=== PATIENT | male | born 1965 | race Caucasian/White ===

== ENCOUNTER 2023-10-30 12:23 | Day surgery (SDC) | payer MEDICAID, OTHER ==
[~2023-10-30] VITALS: Ht 177.8 cm; Wt 86.0 kg
[~2023-10-30 12:23] MED LIST: BALANCED SALT IRRIG SOLN 15ML ONE
[2023-10-30 12:33] VITALS: BP 116/86; TEMP 97.8; O2SAT 100
[2023-10-30 12:34] VITALS: PULSE 77; RESP 18
[2023-10-30 13:23] LABS: BASOPHILS % 1.1 % (0.0-2.0); EOSINOPHILS % 2.3 % (0.0-5.0); HEMATOCRIT. 49.4 % (42.0-52.0); HEMOGLOBIN. 16.2 g/dL (14.0-18.0); LYMPHOCYTES % 21.1 % (20.0-50.0); MEAN CORPUSCULAR HEMOGLOBIN 30.4 pg (28.0-32.0); MEAN CORPUSCULAR HGB CONC 32.8 g/dL (31.0-37.0); MEAN CORPUSCULAR VOLUME 92.5 fL (80.0-94.0); MEAN PLATELET VOLUME 8.4 fl (7.4-10.4); MONOCYTES % 6.6 % (2.0-8.0); NEUTROPHILS % 68.9 % (40.0-76.0); PLATELET 247 x1000/uL (130-400); RED BLOOD CELL COUNT 5.34 mill/uL (4.7-6.1); RED CELL DISTRIBUTION WIDTH 13.6 % (11.6-14.6); WHITE BLOOD COUNT 7.7 x1000/uL (4.5-11.0)
[2023-10-30 13:30] LABS: CHLORIDE 111 mEq/L (98-107); POTASSIUM 4.3 mEq/L (3.5-5.1); SODIUM 141 mEq/L (136-145)
[2023-10-30 13:31] LABS: CALCIUM 9.4 mg/dL (8.7-10.4); CARBON DIOXIDE 29 mEq/L (21-32)
[2023-10-30 13:36] LABS: GLUCOSE 130 mg/dL (70-105)
[2023-10-30 13:37] LABS: UREA NITROGEN BLOOD 15 mg/dL (9-23)
[2023-10-30 13:38] LABS: ALANINE AMINOTRANSFERASE 9 IU/L (10-49); ALBUMIN 4.6 g/dL (3.2-4.8); ASPARTATE AMINOTRANSFERASE 12 IU/L (<34); BILIRUBIN DIRECT 0.2 mg/dL (<=3.0)
[2023-10-30 13:39] LABS: BILIRUBIN TOTAL 0.7 mg/dL (0.1-1.0); PROTEIN TOTAL 6.9 g/dL (6.0-8.3)
[2023-10-30] MEDS ORDERED: MIDAZOLAM HCL 2 MG/2 ML VIAL ONE ×2 (13:48→14:46)
[2023-10-30] MEDS ORDERED: FENTANYL CITRATE/PF 50MCG/ML 2ML VIAL ONE ×2 (13:48→14:46)
[2023-10-30] MEDS ORDERED: PHENYLEPHRINE HCL 10% OPHTH DROPS 5ML RIGHTEYE SCH (14:00)
[2023-10-30] MEDS ORDERED: BALANCED SALT IRRIG SOLN COMB1 500ML OP NR (14:00)
[2023-10-30] MEDS ORDERED: HYALURONATE SODIUM 10MG/ML 0.85ML SYRINGE IO ONE (14:05)
[2023-10-30] MEDS ORDERED: TRYPAN BLUE 0.5 ML DISP.SYRIN IO ONE (14:34)
[2023-10-30] MEDS ORDERED: HYDROMORPHONE HCL/PF 2MG/ML INJ IV PRN (15:00)
[2023-10-30] MEDS ORDERED: LABETALOL 5MG/ML 4ML INJ IV PRN (15:00)
[2023-10-30] MEDS ORDERED: MEPERIDINE HCL/PF 25MG/ML CPJ IV PRN (15:00)
[2023-10-30] MEDS ORDERED: ONDANSETRON HCL 4MG/2ML INJ IV PRN (15:00)
[2023-10-30] MEDS ORDERED: LIDOCAINE HCL 1% 20ML VIAL ONE (15:01)
[2023-10-30] MEDS ORDERED: PROPOFOL 200MG/20ML VIAL IV ONE (15:01)
== END 2023-10-30 16:35 | disposition admitted as inpatient to this hospital (09) ==
LOC: ER 12:23 → OR 14:35
PROVIDERS: ATTEND Ophthalmology
DX: H26.9 Unspecified cataract (principal); Z98.890 Other specified postprocedural states
CPT/HCPCS: 80076; 80048; 85025; 36415; 99283; Q9957; J3010; J3490 ×3; J2250; J2704; V2632

== ENCOUNTER → 2024-09-07 | Day surgery (SDC) | payer MEDICAID ==
[~2024-09-07] VITALS: Ht 180.3 cm; Wt 86.2 kg
[~2024-09-07] MED LIST changes: +ALPR0.5T PO; +AMLO10TA80 PO; +BALANCED SALT IRRIG SOLN COMB2 500ML OP NR; +CARV25TA47 PO; +CYCLOPENTOLATE HCL 1% OPHTH DROPS 2ML LEFTEYE SCH; +FENTANYL CITRATE/PF 50MCG/ML 2ML VIAL ONE; +HYALURONATE SODIUM 10MG/ML 0.55ML SYRINGE IO ONE; +HYDROMORPHONE HCL/PF 1MG/ML INJ IV PRN; +IRBE300T42 PO; +LABETALOL 5MG/ML 4ML INJ IV PRN; +LACTATED RINGERS 1,000 ML IV SCH; +MEPERIDINE HCL/PF 25MG/ML CPJ IV PRN; +MIDAZOLAM HCL 2 MG/2 ML VIAL ONE; +ONDANSETRON HCL 4MG/2ML INJ IV PRN; +PANT40SU PO; +PHENYLEPHRINE HCL 10% OPHTH DROPS 5ML LEFTEYE SCH; +PROPOFOL 200MG/20ML VIAL IV ONE; +PROT40 PO; +RAME8TAB PO; +TROPICAMIDE 1% OPHTH DROPS 15ML LEFTEYE SCH; +TRYPAN BLUE 0.5 ML DISP.SYRIN IO ONE
[2024-09-07 08:37] LABS: BASOPHILS % 0.6 % (0.0-2.0); EOSINOPHILS % 4.6 % (0.0-5.0); HEMATOCRIT. 42.7 % (42.0-52.0); HEMOGLOBIN. 14.6 g/dL (14.0-18.0); LYMPHOCYTES % 25.4 % (20.0-50.0); MEAN CORPUSCULAR HGB CONC 34.1 g/dL (31.0-37.0); MONOCYTES % 8.8 % (2.0-8.0); NEUTROPHILS % 60.6 % (40.0-76.0); PLATELET 219 x1000/uL (130-400); RED BLOOD CELL COUNT 4.55 mill/uL (4.7-6.1); RED CELL DISTRIBUTION WIDTH 16.2 % (11.6-14.6); WHITE BLOOD COUNT 5.6 x1000/uL (4.5-11.0)
[2024-09-07 08:46] LABS: CHLORIDE 106 mEq/L (98-107); POTASSIUM 3.8 mEq/L (3.5-5.1); SODIUM 140 mEq/L (136-145)
[2024-09-07 08:47] LABS: CALCIUM 9.4 mg/dL (8.7-10.4); CARBON DIOXIDE 27 mEq/L (21-32)
[2024-09-07 08:52] LABS: GLUCOSE 129 mg/dL (70-105); UREA NITROGEN BLOOD 18 mg/dL (9-23)
== END | disposition home or self-care (01) ==
LOC: OR 08:12
PROVIDERS: ATTEND Ophthalmology
DX: H25.89 Other age-related cataract (principal); K21.9 Gastro-esophageal reflux disease without esophagitis; I10 Essential (primary) hypertension; Z87.891 Personal history of nicotine dependence; Z79.899 Other long term (current) drug therapy; Z98.890 Other specified postprocedural states
CPT/HCPCS: 66984; 80048; 85025; 36415; J3010; J1580; J2250; J2704; J3490; Q9957